=== PATIENT | male | born 1975 | race Caucasian/White ===

== ENCOUNTER 2024-07-08 06:47 | Day surgery (SDC) | payer OTHER ==
[~2024-07-08] VITALS: Ht 188 cm; Wt 118.2 kg
[~2024-07-08 06:47] MED LIST: SODIUM CHLORIDE 0.9% 1,000 ML ONE
[2024-07-08] MEDS: SODIUM CHLORIDE 0.9% 1,000 ML IV ONE (07:41)
[2024-07-08] MEDS ORDERED: FentaNYL CITRATE PF 100 MCG/2 ML VIAL ONE (08:06)
[2024-07-08] MEDS ORDERED: MIDAZOLAM HCL 2 MG/2 ML VIAL ONE (08:06)
[2024-07-08 10:16] VITALS: PULSE 80; RESP 19; O2SAT 100
[2024-07-08] MEDS ORDERED: MethylPREDNISolone SOD SUCC 125 MG/2 ML VIAL ONE (10:33)
[2024-07-08] MEDS: MethylPREDNISolone SOD SUCC 125 MG/2 ML VIAL IVP ONE (10:38)
[2024-07-08] MEDS ORDERED: BENZOCAINE 20% 50 MCG/SPRAY 57 GM ONE (12:00)
[2024-07-08] MEDS ORDERED: LIDOCAINE 4% 50 ML SOLUTION ONE (12:00)
[2024-07-08] MEDS ORDERED: LIDOCAINE 2% 11 ML JELLY ONE (12:00)
[2024-07-08] MEDS ORDERED: ALBUTEROL SULFATE 2.5 MG/0.5 ML NEB SOLUTION NEB ONE (12:00)
== END 2024-07-08 12:05 | disposition home or self-care (01) ==
LOC: SURGERY 06:47
PROVIDERS: ATTEND Internal Medicine Critical Care Medicine
DX: R05.3 Chronic cough (principal); R04.2 Hemoptysis; J38.4 Edema of larynx; G47.30 Sleep apnea, unspecified; B37.0 Candidal stomatitis; Z87.891 Personal history of nicotine dependence; Z98.890 Other specified postprocedural states
CPT/HCPCS: 31623; 87206; 87101; 87220; 87070; 88108; 31624; 94640; 71045; 87015; J3010; J2250; J2919; J7030; J7613; Z7610